=== PATIENT | male | born 1970 | race Caucasian/White ===

== ENCOUNTER 2021-05-22 09:57 | Outpatient (CLI) | payer BC | END 2021-05-22 09:58 | disposition home or self-care (01) | LOC: CSHWCC 09:57 | PROVIDERS: ATTEND Nurse Practitioner Family | DX: I87.2 Venous insufficiency (chronic) (peripheral) (principal); L98.491 Non-pressure chronic ulcer of skin of other sites limited to breakdown of skin; L97.419 Non-pressure chronic ulcer of right heel and midfoot with unspecified severity; S91.101D Unspecified open wound of right great toe without damage to nail, subsequent encounter; R60.0 Localized edema; I82.4Y1 Acute embolism and thrombosis of unspecified deep veins of right proximal lower extremity; D45 Polycythemia vera; L08.9 Local infection of the skin and subcutaneous tissue, unspecified; B96.89 Other specified bacterial agents as the cause of diseases classified elsewhere | CPT/HCPCS: 99213; G0463 ==

== ENCOUNTER 2021-06-05 11:17 | Outpatient (CLI) | payer BC | END 2021-06-05 11:18 | disposition home or self-care (01) | LOC: CSHWCC 11:17 | PROVIDERS: ATTEND Nurse Practitioner Family | DX: I87.2 Venous insufficiency (chronic) (peripheral) (principal); L97.419 Non-pressure chronic ulcer of right heel and midfoot with unspecified severity; L98.491 Non-pressure chronic ulcer of skin of other sites limited to breakdown of skin; R60.0 Localized edema; I82.4Y1 Acute embolism and thrombosis of unspecified deep veins of right proximal lower extremity; L08.9 Local infection of the skin and subcutaneous tissue, unspecified; D45 Polycythemia vera; B96.89 Other specified bacterial agents as the cause of diseases classified elsewhere; S91.101D Unspecified open wound of right great toe without damage to nail, subsequent encounter | CPT/HCPCS: 11102; 88305; 99213; G0463 ==

== ENCOUNTER 2023-05-05 12:54 | Outpatient (CLI) | payer BC | END 2023-05-05 12:55 | disposition home or self-care (01) | LOC: CSHWCC 12:54 | PROVIDERS: ATTEND Physician Assistant | DX: I87.331 Chronic venous hypertension (idiopathic) with ulcer and inflammation of right lower extremity (principal); L97.312 Non-pressure chronic ulcer of right ankle with fat layer exposed; R60.0 Localized edema | CPT/HCPCS: 11042; 29581; 99212; G0463 ==

== ENCOUNTER 2023-05-12 15:51 | Outpatient (CLI) | payer BC | END 2023-05-12 15:52 | disposition home or self-care (01) | LOC: CSHWCC 15:51 | PROVIDERS: ATTEND Preventive Medicine Undersea and Hyperbaric Medicine | DX: I87.331 Chronic venous hypertension (idiopathic) with ulcer and inflammation of right lower extremity (principal); L97.312 Non-pressure chronic ulcer of right ankle with fat layer exposed; R60.0 Localized edema | CPT/HCPCS: 11042; 29581 ==

== ENCOUNTER 2023-05-17 10:55 | Outpatient (CLI) | payer BC | END 2023-05-17 10:56 | disposition home or self-care (01) | LOC: CSHWCC 10:55 | PROVIDERS: ATTEND Physician Assistant | DX: I87.331 Chronic venous hypertension (idiopathic) with ulcer and inflammation of right lower extremity (principal); L97.312 Non-pressure chronic ulcer of right ankle with fat layer exposed | CPT/HCPCS: 29581 ==

== ENCOUNTER 2023-05-24 13:59 | Outpatient (CLI) | payer BC | END 2023-05-24 14:00 | disposition home or self-care (01) | LOC: CSHWCC 13:59 | PROVIDERS: ATTEND Physician Assistant | DX: I87.332 Chronic venous hypertension (idiopathic) with ulcer and inflammation of left lower extremity (principal) | CPT/HCPCS: 29581 ==

== ENCOUNTER 2023-05-28 13:05 | Outpatient (CLI) | payer BC | END 2023-05-28 13:06 | disposition home or self-care (01) | LOC: CSHWCC 13:05 | PROVIDERS: ATTEND Physician Assistant | DX: L97.819 Non-pressure chronic ulcer of other part of right lower leg with unspecified severity (principal); L95.0 Livedoid vasculitis; D45 Polycythemia vera | CPT/HCPCS: 29581 ==

== ENCOUNTER 2023-06-02 14:20 | Outpatient (CLI) | payer BC | END 2023-06-02 14:21 | disposition home or self-care (01) | LOC: CSHWCC 14:20 | PROVIDERS: ATTEND Physician Assistant | DX: L97.819 Non-pressure chronic ulcer of other part of right lower leg with unspecified severity (principal); L95.0 Livedoid vasculitis; D45 Polycythemia vera | CPT/HCPCS: 97602 ==

== ENCOUNTER 2023-06-30 15:07 | Outpatient (CLI) | payer BC | END 2023-06-30 15:08 | disposition home or self-care (01) | LOC: CSHWCC 15:07 | PROVIDERS: ATTEND Physician Assistant | DX: L97.819 Non-pressure chronic ulcer of other part of right lower leg with unspecified severity (principal); L95.0 Livedoid vasculitis; D45 Polycythemia vera | CPT/HCPCS: 99213; G0463 ==